=== PATIENT | female | born 1995 | race Caucasian/White ===

== ENCOUNTER 2018-05-03 18:23 | Emergency (ER) | payer SELFPAY ==
[2018-05-03 18:44] VITALS: BP 101/62
--- NOTE | 2018-05-03 18:58 | UC ---
Throat Pain/Nasal Rodney HPI - HPI Summary HPI Summary: Patient has very sore swollen throat, diffuculty swallowing. denies fever, is feeling very run down. also complains of occasional right thigh pain during work that has been going on for a few months. currently not in pain. - History of Current Complaint Chief Complaint: UCRespiratory Stated Complaint: THROAT,EAR COMPLAINT,CHEST DISCOMFORT Time Seen by Provider: 05/03/18 18:41 Hx Obtained From: Patient Hx Last Menstrual Period: Unsure due to depo shots ?: No Onset/Duration: Sudden Onset, Lasting Days Severity: Moderate Pain Intensity: 6 Cough: Nonproductive Associated Signs & Symptoms: Positive: Dysphagia - Allergies/Home Medications Allergies/Adverse Reactions: Allergies Allergy/AdvReac Type Severity Reaction Status Date / Time amoxicillin [From Augmentin] Allergy Hives Verified 05/03/18 18:38 [email or web address] [From Omnicef] Allergy Hives Verified 05/03/18 18:38 clavulanic acid Allergy Hives Verified 05/03/18 18:38 [From Augmentin] valacyclovir Allergy Hives Verified 05/03/18 18:38 Home Medications: Home Medications Acetaminophen [Tylenol Extra Strength] 500 mg PO DAILY 05/03/18 [History Confirmed 05/03/18] guaiFENesin ER TAB [Mucinex*] 600 mg PO BID 05/03/18 [History Confirmed 05/03/18 ] PMH/Surg Hx/FS Hx/Imm Hx Previously Healthy: Yes - Surgical History Surgical History: None - Family History Known Family History: Positive: Hypertension - Social History Alcohol Use: Occasionally Substance Use Type: Marijuana Substance Use Comment - Amount & Last Used: daily Smoking Status (MU): Heavy Every Day Tobacco Smoker Type: Cigarettes Amount Used/How Often: 1/2-1 ppd Length of Time of Smoking/Using Tobacco: 2 yrs Have You Smoked in the Last Year: Yes - Immunization History Vaccination Up to Date: Yes Review of Systems Constitutional: Chills, Fatigue Skin: Negative Eyes: Negative ENT: Sore Throat Respiratory: Shortness Of Breath, Cough Cardiovascular: Negative Gastrointestinal: Negative Genitourinary: Negative Motor: Negative Neurovascular: Negative Musculoskeletal: Negative Neurological: Negative Psychological: Negative Is Patient Immunocompromised?: No All Other Systems Reviewed And Are Negative: Yes Physical Exam Triage Information Reviewed: Yes Appearance: Well-Nourished, Ill-Appearing, Pain Distress Vital Signs: Initial Vital Signs Temp 98.7 F 05/03/18 18:39 Pulse 83 05/03/18 18:39 Resp 15 05/03/18 18:39 BP 101/62 05/03/18 18:39 Pulse Ox 99 05/03/18 18:39 Vital Signs Reviewed: Yes Eye Exam: Normal ENT: Positive: Pharyngeal erythema, TM red, Tonsillar swelling Dental Exam: Normal Neck: Positive: Supple, Nontender, Enlarged Nodes @ - bilateral cervical Respiratory Exam: Normal Respiratory: Positive: Chest non-tender, No respiratory distress, No accessory muscle use, Crackles - lower left lobe Cardiovascular Exam: Normal Cardiovascular: Positive: RRR, No Murmur, Pulses Normal Abdominal Exam: Normal Abdomen Description: Positive: Nontender, No Organomegaly, Soft Bowel Sounds: Positive: Present Musculoskeletal Exam: Normal Musculoskeletal: Positive: Strength Intact, ROM Intact, No Edema Neurological Exam: Normal Neurological: Positive: Alert Psychological Exam: Normal Skin Exam: Normal Throat Pain/Nasal Course/Dx - Course Course Of Treatment: hx obtained, exam performed, meds reviewed, rapid strep obained, chest xray performed. - Differential Dx/Diagnosis Differential Diagnosis/HQI/PQRI: Influenza, Laryngitis, Mononucleosis, Tonsillitis, URI Provider Diagnoses: mononuecliosis. fatique. leg pain Discharge - Sign-Out/Discharge Documenting (check all that apply): Patient Departure All imaging exams completed and their final reports reviewed: Yes - Discharge Plan Condition: Stable Disposition: HOME Prescriptions: Azithromycin TAB* [Zithromax TAB (Z-MIKEL) 250 mg #6 tabs] 2 tab PO .TODAY, THEN 1 DAILY #1 mikel predniSONE [Prednisone 20 MG TAB] 40 mg PO DAILY #14 tablet Patient Education Materials: Mononucleosis (ED) Forms: *Work Release Referrals: No Primary Care Phys,NOPCP [Primary Care Provider] - Additional Instructions: 1. take the medication as prescribed. 2. Rest and increase clear fluid intake 3. Due to the Shortness of breath, cough, and lung sounds that were hear, I am treating you for a lower respiratory infection as well. - Billing Disposition and Condition Condition: STABLE Disposition: Home
--- NOTE | 2018-05-03 20:01 | RAD ---
EXAM: XR Chest, 2 Views EXAM DATE/TIME: 05/03/2018 7:16 PM CLINICAL HISTORY: 22 years old, female; Signs and symptoms; Cough and dyspnea; Additional info: SOB, cough TECHNIQUE: XR of the chest, 2 views. COMPARISON: OT CXR CHEST PA LAT 2 VWS 12/27/2016 11:58 AM FINDINGS: Lungs: Unremarkable. No consolidation. Pleural space: Unremarkable. No pleural effusion. No pneumothorax. Heart/Mediastinum: Unremarkable. No cardiomegaly. Bones/joints: Unremarkable. IMPRESSION: No acute infiltrate. To contact [facility] with a general question: Operations Center - [phone] For direct physician to physician contact: Physician Hotline - [phone] [facility] ([facility] Facility ID #[id number])
== END 2018-05-03 19:42 | disposition home or self-care (01) ==
LOC: UCCORT 18:23
DX: B27.90 Infectious mononucleosis, unspecified without complication (principal); R53.83 Other fatigue; M79.606 Pain in leg, unspecified; F17.210 Nicotine dependence, cigarettes, uncomplicated
CPT/HCPCS: 71046; 87651; 99212; G0463

== ENCOUNTER → 2019-09-03 17:05 | Emergency (ER) | payer OTHER ==
[2019-09-03 17:23] VITALS: BP 119/59
== END | disposition left against medical advice (07) ==
LOC: UCCORT 17:05
DX: Z53.21 Procedure and treatment not carried out due to patient leaving prior to being seen by health care provider (principal)